=== PATIENT | male | born 1940 | race Caucasian/White ===

== ENCOUNTER 2022-02-26 08:31 | Observation (INO) ==
--- NOTE | 2022-01-26 10:20 | PAT Medication Instructions ---
Medication Instructions Date of Service January 26, 2022 Home Medications aspirin 81 mg tablet,delayed release (Ecotrin Low Strength) 81 mg PO QAM finasteride 5 mg tablet 5 mg PO QAM isosorbide mononitrate 30 mg tablet,extended release 24 hr 30 mg PO QAM lisinopril 10 mg tablet 10 mg PO metoprolol succinate 25 mg tablet,extended release 24 hr 25 mg PO QAM multivitamin 1 tab PO QAM omega 4-ccv-hfx-fish oil 1,200 mg (144 mg-216 mg) capsule (Fish Oil) 1,200 cap PO QAM simvastatin 20 mg tablet 20 mg PO HS trazodone 100 mg tablet 100 mg PO HS vitamin E mixed-tocotrienol 120 unit-17 mg capsule 1 cap PO QAM STOP taking 2 weeks before surgery omega 3-cro-exb-fish oil 1,200 mg (144 mg-216 mg) capsule (Fish Oil) 1,200 cap PO QAM vitamin E mixed-tocotrienol 120 unit-17 mg capsule 1 cap PO QAM DO NOT take the morning of surgery lisinopril 10 mg tablet 10 mg PO multivitamin 1 tab PO QAM Take morning of surgery With a small sip of water, OTHERWISE NOTHING TO EAT OR DRINK AFTER MIDNIGHT: aspirin 81 mg tablet,delayed release (Ecotrin Low Strength) 81 mg PO QAM (unless directed otherwise by surgeon) finasteride 5 mg tablet 5 mg PO QAM isosorbide mononitrate 30 mg tablet,extended release 24 hr 30 mg PO QAM metoprolol succinate 25 mg tablet,extended release 24 hr 25 mg PO QAM Take evening before surgery simvastatin 20 mg tablet 20 mg PO HS trazodone 100 mg tablet 100 mg PO HS Other Notes If you have any questions please call us at [phone] or [phone] or [phone] or [phone]
--- NOTE | 2022-01-27 09:19 | Anesthesiology Consultation ---
Date of Service January 27, 2022 Assessment & Plan (1) Encounter for pre-operative examination: Chart Review Chart Review: Pending: Refer to Additional Notes / Consult section (pending PCP clearance (01/28) with response to CXR, cardio response to abnormal EKG response, and preop Covid testing results ) and Patient seen in Pre Admission Testing - Awaiting surgeon ordered PCP clearance (01/28/22) (will send note with CXR results to address at PAT appt) -Wrote note to cardio inquiring about bifascicular block (noted on 01/27/22 PAT preop EKG and Jun 2021 EKG) and if further work up needed prior to surgery- will await response Per PAT appt on 01/27/22, patient denies any recent travel or large group activities. No known Covid positive exposures or Covid related symptoms. No known Covid infection in the past 90 days. Pt is NOT vaccinated for Covid. Preop Covid testing scheduled 02/24/22 = will await results. Educated on importance of self quarantining, social distancing and wearing mask in public for the patient one week prior to surgery and after Covid testing done Pt seen by cardio 09/22/21= patient seen for follow-up. Lower extremity edema still present but better with Lasix. [place]. Able to do household activities. Shortness of breath only going uphill or when walking quickly. CADstablecontinue current meds. Shortness of breath with exertionlikely multifactorialpossibility of COPD. Hypertensionwell controlled. Hyperlipidemiacontinue statin. Mild aortic stenosisnoted on 2019 echohas been stable. Diastolic dysfunctionlower extremity edema chroniccontinue Lasix. Follow-up in 6 months. Teaching & Discussion Pre-Anesthesia Teaching/Discussion Notes: Instructed NPO after midnight before surgery,except medications with 15 cc of water. Medication instructions provided according to the PAT guidelines. History Surgery Operation Date: 02/26/22 13:50 Proposed Procedures p Left Total Shoulder Arthroplasty Reverse - Carmelo Cisse MD Height/Weight Height: 5 ft 9 in Weight: 105.1 kg Allergies Allergy/AdvReac Type Severity Reaction Status Date / Time Penicillins Allergy Severe RASH; SOB Verified 01/27/22 09:25 latex Allergy Intermediate localized Verified 01/23/22 13:12 rash Medications Home Medications Medication Instructions Recorded Confirmed Last Taken aspirin 81 mg tablet,delayed 81 mg PO COUNT INCLUDES THE [facility] 01/23/22 01/23/22 Unknown release (Ecotrin Low Strength) finasteride 5 mg tablet 5 mg PO COUNT INCLUDES THE [facility] 01/23/22 01/23/22 Unknown isosorbide mononitrate 30 mg 30 mg PO QA 01/23/22 01/23/22 Unknown tablet,extended release 24 hr lisinopril 10 mg tablet 10 mg PO 1200 01/23/22 01/23/22 Unknown metoprolol succinate 25 mg 25 mg PO QA 01/23/22 01/23/22 Unknown tablet,extended release 24 hr multivitamin 1 tab PO COUNT INCLUDES THE [facility] 01/23/22 01/23/22 Unknown omega 5-aoi-nzs-fish oil 1,200 mg 1,200 cap PO COUNT INCLUDES THE [facility] 01/23/22 01/23/22 Unknown (144 mg-216 mg) capsule (Fish Oil) simvastatin 20 mg tablet 20 mg PO 01/23/22 01/23/22 Unknown trazodone 100 mg tablet 100 mg PO 01/23/22 01/23/22 Unknown vitamin E mixed-tocotrienol 120 1 cap PO COUNT INCLUDES THE [facility] 01/23/22 01/23/22 Unknown unit-17 mg capsule Past Medical History Medical History BPH (benign prostatic hyperplasia) CAD (coronary artery disease) Cardiac cath 07/22/2017 WARNER to LAD patent, SVG to OM1 is patent, SVG to PDA and SVG to diagonal are occluded. WARNER to LAD gives collaterals that supply the acute marginal branch of RCA. S/p one stent in 2017 to prox/mid Cx (Cobra stent) S/p 5 vessel CABG 1998 CKD (chronic kidney disease), stage III Hyperlipidemia Hypertension Mild aortic stenosis Per ECHO 2019 Osteoarthritis SOB (shortness of breath) on exertion R/t environmental fumes and second hand smoke. Active daily. No inhalers Exercise / Class Metabolic Activity III < 4 Walking/Shop/Light housework (one flight of stairs - mild SOB, no chest pain - does routine yardwork ) Past Family History Family History Other No family history of adverse response to anesthesia Past Surgical History Surgical History History of cardiac cath 2017 [facility] History of coronary artery bypass graft December 1998 -- 5 vessel bypass ([place]) History of heart artery stent x1 in 2017 ([facility]) History of total hip arthroplasty left S/P TURP Past Anesthesia History No Hx of Anesthesia Complications and No Family Hx of Anesthesia Complications History of PONV No Hx of PONV and No Hx of Motion Sickness Social History Smoking Status: Never smoker Do You Dip or Chew Tobacco: No Hx Alcohol Use: No Hx Substance Use: No Review of Systems Chronic ANDERS- mild and stable Patient denies chest pain, shortness of breath at rest, reflux, cough, wheezing, palpitations. No hx of seizures, stroke, apnea/snoring. No hx of blood clots or blood transfusions Physical Exam Vital Signs VITALS BP 126/65 P 53 TEMP 97.9 SP02 98% RESP 16 Constitutional no acute distress ENMT Mouth: no TMJ clicking Thyromental Distance: > or= 3.5 Finger Breadths (3.5) Mallampati Class: I Full dentures on top and bottom Neck neck extension not limited Respiratory normal respiratory effort; no respiratory distress Auscultation: lungs clear to auscultation bilaterally; no wheezes Cardiovascular Rate/Rhythm: regular rate and regular rhythm Heart Sounds: + murmur (II/ murmur ) Vessels: no carotid bruit Heart sounds diminished throughout Musculoskeletal Spine: no pain with cervical ROM Extremities: extremities normal to inspection Psychiatric Orientation: alert Lab Results Anesthesia Preop Results Results Anesthesia Widget: WBC 5.97 K/uL (4.8-10.8) 01/27/22 Hgb 13.1 g/dL (14.0-18.0) L 01/27/22 Hct 40.9 % (42-52) L 01/27/22 Plt 227 K/uL (130-400) 01/27/22 Na 141 mmol/L (136-145) 01/27/22 K 5.0 mmol/L (3.5-5.1) 01/27/22 Cl 108 mmol/L (98-107) H 01/27/22 CO2 28 mmol/L (21-32) 01/27/22 BUN 29 mg/dl (6-23) H 01/27/22 Creat 1.27 mg/dl (0.6-1.4) 01/27/22 Glucose Level 120 mg/dl (70-99(Fasting)) H 01/27/22 PT 10.2 Seconds (9.0-12.0) 01/27/22 PTT 29.7 Seconds (21.0-31.0) 01/27/22 INR 1.0 (0.9-1.1) 01/27/22 HA1c 6.4 % (4.5-5.6) H 01/27/22 Urine Color Yellow 01/27/22 Urine Appearance Clear (Clear) 01/27/22 Urine pH 5.5 (4.5-7.5) 01/27/22 Urine Specific [place] 1.026 (1.000-1.030) 01/27/22 Urine Protein Trace (Negative) H 01/27/22 Urine Glucose (UA) Negative (Negative) 01/27/22 Urine Ketones Negative (Negative) 01/27/22 Urine Blood Negative (Negative) 01/27/22 Urine Nitrite Negative (Negative) 01/27/22 Urine Bilirubin Negative (Negative) 01/27/22 Urine Urobilinogen Negative (Negative) 01/27/22 Urine Leukocyte Esterase Negative (Negative) 01/27/22 Urine WBC (Auto) 1-5 /hpf (0-5) 01/27/22 Urine RBC (Auto) 0-4 /hpf (0-4) 01/27/22 Urine Hyaline Casts (Auto) 1-5 /lpf (0-5) 01/27/22 Urine Epithelial Cells (Auto) 10-20 /lpf (0-5) H 01/27/22 Urine Bacteria (Auto) Negative (Negative) 01/27/22 Blood Type O Positive 01/27/22 Antibody Screen NEGATIVE 01/27/22 Testing Electrocardiogram Date: 01/27/22 Sinus bradycardia with first-degree AV block with occasional PVCs at 50 bpm Right bundle branch block Left anterior fascicular block Bifascicular block Moderate voltage criteria for LVH, may be normal variant When compared with EKG from January 14, 2016PVC complexes are now present, MI interval has increased. Right bundle branch block has replaced nonspecific intraventricular conduction block per cardio Chest X-Ray Date: 01/27/22 FINDINGS: PA and lateral chest radiographs are compared to study dated 01/14/2016. The patient is status post midline sternotomy. The heart is enlarged noting atherosclerotic calcification of the thoracic aorta. There is prominence of the pulmonary vasculature. Again seen is a small and at least partially loculated left pleural effusion with associated left basilar opacities. The right lung appears clear noting basilar scarring/atelectasis. There is no pneumothorax. The skeletal structures are osteopenic. A compression deformity is noted at the thoracolumbar junction. IMPRESSION: 1. Cardiomegaly with prominence of the pulmonary vasculature. Correlate clinically for evidence of fluid overload/congestive change. 2. There is a small at least partially loculated pleural effusion/collection at the left lung base. This is likely chronic, as this was also seen in 2016. 3. Left basilar opacities are also unchanged and likely represent scarring/atelectasis. Clinical correlation will be required. Echocardiogram Date: 10/05/19 EF: 55-59% LV Function: normal RWMA: + none Other Findings: + LVH (moderate/concentric ) and + diastolic dysfunction (Grade I ) Mild aortic valve stenosis Mild MR. Mild TR. Mild MI. Estimated PASP 27mmHg. Stress Test Date: 04/14/17 Type: nuclear Lexiscan nuclear cardiac stress test positive for for reversible ischemia Small area of moderately reduced reversible perfusion deficit noted in the apical to mid anterior wall. TID normal at 1.05. Gated SPECT images mild hypokinesis of apex. LVEF is calculated 63%. Cardiac Catheterization Date: 07/22/17 3 of 4 bypass grafts are patent. WARNER to LAD patent SVG to OM1 patent SVG to PDA and SVG to diagonal are occluded. WARNER to LAD gives collaterals that supply the acute marginal branch of RCA. Incomplete revascularization achieved but rest of the vessels are revascularizable. PCI of the proximal circumflex to mid circumflex were successfuldevice used was a Cobra stent. LVEDP not elevated. AV gradient is around 20 mmHg. Mild aortic stenosis Severe [place] CAD. There is 90% pLCx stenosis. 100%pLAD stenosis. pRCA 100% lesion. Pulmonary Function Test Date: 09/23/21 SPIROGRAM: Shows pre bronchodilator FEV1 to be decreased at 65% of predicted (1.62 L), FVC is decreased at 66% of predicted (2.21 L). FEV1/FVC ratio is less than predicted. There is no bronchodilator studies SMALL AIRWAYS:The flow of air at 25 - 75% of vital capacity is decreased LUNG VOLUMES: Lung volumes when measured by body plethysmography shows DIFFUSION CAPACITY: Diffusion capacity is decreased at 53% of predicted. However, the diffusing capacity was not corrected for the patient's hemoglobin. RESISTANCE: The airway resistance is increased. CONCLUSION: PFT is suggestive of combined obstructive and restrictive ventilatory impairment. Uncorrected diffusion capacity is decreased.
--- NOTE | 2022-02-21 08:54 | History & Physical Report ---
Date of Service February 21, 2022 Assessment & Plan (1) Rotator cuff arthropathy of left shoulder: Plan: Treatment options discussed with the patient. He has failed conservative measures. He would like to proceed with surgical intervention. Risks, benefits and alternatives to surgery including but not limited to infection, DVT, pain, stiffness, need for revision surgery, damage to blood vessels, damage to nerves, PE, , were discussed with the patient and they wish to proceed. Plan for left reverse total shoulder arthroplasty at [facility] on February [address] Cisse. All questions answered. Patient will follow-up postop. History of Present Illness Chief Complaint: Left shoulder pain Primary Care Provider: Cortney Lobato 81-year-old male with past medical history significant for hypertension, high cholesterol, CAD status post bypass and stents, COPD and interstitial lung disease who presents with ongoing left shoulder pain. Patient has failed conservative measures. Pain is interfering with his daily activities. He would like to proceed with surgical intervention. Patient denies headaches, sweats, fevers, chills, double vision, blurred vision, cough, sore throat, dysphagia, chest pain, sob, wheezing, n/v/d/c, numbness, tingling, fatigue, urinary symptoms, mood disorders. ROS positive for left shoulder pain and stiffness. Allergies Allergy/AdvReac Type Severity Reaction Status Date / Time Penicillins Allergy Severe RASH; SOB Verified 01/27/22 09:25 latex Allergy Intermediate localized Verified 01/23/22 13:12 rash Home Medications Medication Instructions Recorded Confirmed Type aspirin 81 mg tablet,delayed 81 mg PO QAM 01/23/22 01/23/22 History release (Ecotrin Low Strength) finasteride 5 mg tablet 5 mg PO QAM 01/23/22 01/23/22 History isosorbide mononitrate 30 mg 30 mg PO QAM 01/23/22 01/23/22 History tablet,extended release 24 hr lisinopril 10 mg tablet 10 mg PO 1200 01/23/22 01/23/22 History metoprolol succinate 25 mg 25 mg PO QAM 01/23/22 01/23/22 History tablet,extended release 24 hr multivitamin 1 tab PO QAM 01/23/22 01/23/22 History omega 6-zng-mql-fish oil 1,200 mg 1,200 cap PO QAM 01/23/22 01/23/22 History (144 mg-216 mg) capsule (Fish Oil) simvastatin 20 mg tablet 20 mg PO HS 01/23/22 01/23/22 History trazodone 100 mg tablet 100 mg PO HS 01/23/22 01/23/22 History vitamin E mixed-tocotrienol 120 1 cap PO QAM 01/23/22 01/23/22 History unit-17 mg capsule Past Med/Surg History Medical History (Updated 02/21/22 @ 08:53 by Fritz Matthews PA-C) BPH (benign prostatic hyperplasia) CAD (coronary artery disease) Cardiac cath 07/22/2017 WARNER to LAD patent, SVG to OM1 is patent, SVG to PDA and SVG to diagonal are occluded. WARNER to LAD gives collaterals that supply the acute marginal branch of RCA. S/p one stent in 2017 to prox/mid Cx (Cobra stent) S/p 5 vessel CABG 1998 CKD (chronic kidney disease), stage III Hyperlipidemia Hypertension Mild aortic stenosis Per ECHO 2019 Osteoarthritis Prediabetes Per PCP records SOB (shortness of breath) on exertion R/t environmental fumes and second hand smoke. Active daily. 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 Beliefs That Will Affect Care: None Current Living Situation: Alone Feels Safe at Home: Yes Assistive Devices: Denture - Upper, Denture - Lower and Glasses Review of Systems All systems reviewed & are unremarkable except as noted in HPI & below Physical Exam Constitutional: well developed and well nourished; no acute distress Eyes: PERRL, conjunctivae normal, anicteric sclerae ENMT: external ear and nose normal, oropharynx normal Neck: trachea midline, no thyromegaly Respiratory: normal respiratory effort, lungs clear to auscultation Cardiovascular: RRR, no murmur, no edema Musculoskeletal: Left shoulder: Tenderness anterolateral acromion. Positive impingement signs. Active painful range of motion. Range of motion: Active abduction to 60 degrees, forward flexion is 70 degrees, external rotation to 70 degrees. Shoulder external rotation strength is 3+/5, internal rotation is 4+/5, abduction is 2+/5. Skin: no rashes, warm and dry Neurologic: patellar DTR's 2+ bilat, sensation intact Psychiatric: A+Ox3, euthymic affect Results & Data ([facility]) Diagnostic Findings Left shoulder radiographs demonstrate mild proximal migration humeral head. Degenerative changes greater tuberosity consistent with chronic rotator cuff pathology. MRI demonstrates massive full-thickness rotator cuff tear with retraction to the level of the glenoid. There is fatty atrophy. Is upper border subscapularis tear.
[~2022-02-26 08:31] MED LIST: ACETAMINOPHEN 500 MG TAB PO SCH; BUPIVACAINE 0.5 % 5 MG/1 ML PF 10ML VIAL ONE; CeleBREX 200 MG CAP PO SCH; FAMOTIDINE 20 MG TAB PO SCH; GABAPENTIN 300 MG CAP PO SCH; LR 15ML/HR IV SCH; METOCLOPRAMIDE HCL 10 MG TABLET PO SCH; TRANEXAMIC ACID 1,000 MG **IV Intra-op IV SCH; TRANEXAMIC ACID 1,000 MG **IV Pre-op IV SCH; VANCOMYCIN HCL 1,500 MG in SODIUM CHLORIDE 0.9% 500 ML IV SCH; dexAMETHasone 4 MG TAB PO SCH
--- NOTE | 2022-02-26 09:19 | History & Physical Bridge Note ---
Date of Service February 26, 2022 History & Physical Bridge Note I have examined the patient, reviewed the History & Physical and in the interval since the performance of the History & Physical I have noted the following changes of clinical significance: no changes noted
[2022-02-26] MEDS ORDERED: BUPIVACAINE 0.5 % 5 MG/1 ML MPF 30ML VIAL ONE (10:00)
[2022-02-26] MEDS ORDERED: fentaNYL citrate 100 MCG/2 ML VIAL IV PRN (10:29)
[2022-02-26] MEDS ORDERED: ATROPINE SULFATE 0.1 MG/ML 10ML SYR IV PRN (10:29)
[2022-02-26] MEDS ORDERED: ePHEDrine sulfate 50 MG/ML AMP IV PRN (10:29)
[2022-02-26] MEDS ORDERED: ONDANSETRON INJ 2 MG/ML 2 ML VIAL IV PRN ×2 (10:29→15:57)
[2022-02-26] MEDS ORDERED: MIDAZOLAM HCL 1 MG/ML 2ML VIAL ONE (10:56)
[2022-02-26] MEDS ORDERED: fentaNYL citrate 100 MCG/2 ML VIAL ONE (10:56)
[2022-02-26] MEDS ORDERED: ONDANSETRON INJ 2 MG/ML 2 ML VIAL ONE ×2 (12:15→13:05)
[2022-02-26] MEDS ORDERED: DEXAMETHASONE SOD INJ 4 MG/ML VIAL ONE ×2 (12:15→13:05)
[2022-02-26] MEDS ORDERED: ePHEDrine sulfate 50 MG/ML AMP ONE (13:04)
[2022-02-26] MEDS ORDERED: NEOSTIGMINE METHYLSULFATE 1 MG/ML 10ML VIAL ONE (13:05)
[2022-02-26] MEDS ORDERED: GLYCOPYRROLATE 0.2 MG/ML VIAL ONE (13:05)
--- NOTE | 2022-02-26 14:25 | Post Operative Brief Note ---
Immediate Post Op Note v1 Date of Surgery February 26, 2022 Pre & Post Diagnosis Operation Date: 02/26/22 11:20 Pre-Op Diagnosis: Left Shoulder Rotator Cuff Arthropathy, chronic rotator cuff tear, proximal biceps rupture Post-Op Diagnosis: Left Shoulder Rotator Cuff Arthropathy, chronic rotator cuff tear, proximal biceps rupture I identified the patient and participated in the time-out.: Yes Procedure Operation Date: 02/26/22 11:20 Actual Procedures p Left Reverse Total Shoulder Arthroplasty(Left) - Carmelo Cisse MD Surgeon Carmelo Cisse MD Process Equipment Operator Inderjit CHISHOLM Estimated Blood Loss 30 Findings Consistent with Post-Op Diagnosis Specimens Humeral head Drains Hemovac Drain Anesthesia Type General Regional Complications none Disposition Disposition: Recovery Room Overlapping Procedure I was immediately available: during the entire case.
--- NOTE | 2022-02-26 14:36 | Operative Report ---
Post Operative Report Pre & Post Diagnosis Operation Date: 02/26/22 11:20 Pre-Op Diagnosis: Left Shoulder Rotator Cuff Arthropathy, chronic rotator cuff tear, proximal biceps rupture Post-Op Diagnosis: Left Shoulder Rotator Cuff Arthropathy, chronic rotator cuff tear, proximal biceps rupture I identified the patient and participated in the time-out.: Yes Procedure Operation Date: 02/26/22 11:20 Actual Procedures p Left Reverse Total Shoulder Arthroplasty(Left) - Carmelo Cisse MD Surgeon Carmelo Cisse MD Paper Cleaner Inderjit CHISHOLM Estimated Blood Loss 30 Findings Consistent with Post-Op Diagnosis Specimens Humeral head Drains 2 Hemovac Anesthesia Type General Regional Complications none Disposition Disposition: Recovery Room Indications 81-year-old male with chronic left shoulder pain weakness pseudoparalysis unable to raise arm overhead. X-rays and MRI demonstrate large retracted rotator cuff tear proximal migration rotator cuff arthropathy and proximal biceps rupture. Description of Procedure The patient was taken to the operating room and anesthetized under regional block and general anesthetic. The patient was positioned on the operating table in a 30 beach chair position with a towel roll under the medial border of the left scapula. The arm was draped free to be able to manipulate the shoulder as needed. The left upper extremity was prepped and draped in usual sterile fashion. Exam demonstrated 150 degrees forward flexion 100 degrees abduction 60 degrees external rotation 80 degrees internal rotation. An anterior deltopectoral approach was performed. A longitudinal incision was made in the deltopectoral interval. The skin was incised sharply. Subcutaneous flaps were elevated off the fascia. The cephalic vein was dissected out and retracted lateral with the deltoid. The clavipectoral fascia was divided at the lateral margin of the conjoined tendon and extended up to the CA ligament. The following findings were noted: There was chronic bursitis over the rotator cuff and a large rotator cuff tear involving supraspinatus infraspinatus with intact teres minor. There is tendinopathy of the subscapularis tendon. There was chronic ruptured biceps tendon with a retained biceps tendon sheath in the groove. This did have some fluid in it. The upper centimeter of the pectoralis was released for inferior exposure. A self-retaining retractor was placed. The biceps tendon sheath was resected. The subscapular muscle fibers were split longitudinally at the level of the circumflex vessels. The circumflex vessels were identified and tied off with silk ties and divided laterally. A Kitner elevator was used to free up the inferior fibers of the subscapularis off of the capsule. The axillary nerve was identified with a tug test and protected with a blunt Luigi retractor between the nerve and the capsule. The subscapularis tendon was then taken down off of the lesser tuberosity subperiosteally, a Vicryl traction suture was placed and a subperiosteal dissection was performed along the neck of the humerus as the arm was gradually externally rotated exposing the humeral head. The humeral head findings demonstrated no significant osteophytes with some grade 2-3 arthritic wear of the superior head underlying the rotator cuff tear. Retractors were readjusted and A Craft elevator was used to assist in releasing the capsule of the neck of the humerus. The capsule was divided with Hwang scissors down to the glenoid released off the anterior glenoid and the rotator interval was released to meet the capsular release and a 360 release of the subscapularis was accomplished. A Fukuda retractor was placed into the joint retracting the humeral head posterior. Glenoid findings demonstrated grade 2 osteoarthritis no exposed bone. The labrum was resected. an anterior-inferior and posterior inferior capsular release were performed with electrocautery and a Craft elevator on bone with the axillary nerve protected inferiorly by the retractor. Attention was then taken to the humeral preparation. The cutting guide was placed into the humeral head. It was positioned at 20 of retroversion. Oscillating saw was used to resect the humeral head giving the cut above the level of the posterior rotator cuff insertion site. The humerus was then prepared for the stem. I used the ascend flex stem from [employer]. The sizing broaches were used followed by trial broaches up to a size 6B long which had the appropriate fit and fill. The appropriate sized cut protector was placed. The humerus was then retracted posterior to the glenoid. The glenoid was sized for a 29 baseplate The guide for the baseplate was positioned in a 10 inferior tilt and the central drill hole was made. The reamer for the 29 baseplate was used. The central drill was widened for the peg. The Tornier aequalis hydroxyapatite-coated 29 mm baseplate was impacted into position. The base plate was transfixed with superior and inferior locking screws and anterior and posterior compression screws with stable fixation. The fan reamer was used for the 42 millimeter glenoid sphere. After irrigation the 42 mm standard glenoid sphere was impacted onto the baseplate and the security screw was tightened. Attention was taken back to the humerus. The cut protector was removed and the +0 high offset humeral tray trial was assembled to the trial stem rotated appropriately to get bony coverage and then screwed in position. A trial reduction was performed. A +6, 42 trial insert demonstrated good stability and no shuck. The trials were removed. 3 drill holes are made into the harder bone in the bicipital groove area and 3 #5 FiberWire sutures were placed transosseously. The canal was irrigated with antibiotic solution with bacitracin. The final component was assembled. The final component was plus or high offset tray assembled to the size 6B long ascend flex stem with a +6, 42 polyethylene reversed insert. This was then impacted into the humerus with a tight press-fit. It was reduced to the glenoid sphere. Stability was verified. Subscapularis was repaired with the #5 FiberWire sutures using Felix-Cole suture technique. The pectoralis was repaired with #2 FiberWire [id number] sutures . The arm was taken through a range of motion which demonstrated 150 degrees forward flexion 90 degrees abduction 45 degrees external rotation without any tension on repair. The implant was stable through the range of motion tested. The wound was copiously irrigated. 2 Hemovac drains were placed. The deltopectoral interval was closed with [id number] #1 Vicryl sutures. The subcutaneous tissues were closed with 2-0 Vicryl sutures. The skin was closed with macie. Sterile dressings were applied and a shoulder immobilizer. Inderjit CHISHOLM, my physician physician office assistant acted as middle school assistant principal throughout the procedure .He performed functions including patient positioning, arm positioning, prepping and draping, soft tissue retraction, instrument management, suture management and performed the subcutaneous and skin closure and will participate in the postoperative care of the patient. I attest to the content of the Intraoperative Record and any orders documented therein. Any exceptions are noted below.
--- NOTE | 2022-02-26 15:04 | XRay Report ---
XR shoulder LT min 2V routine CLINICAL HISTORY: Post shoulder surgery TECHNIQUE: 3 views of the left shoulder were obtained. Comparison: None available at the time of this dictation. FINDINGS: Patient is status post shoulder arthroplasty with expected postsurgical changes including soft tissue swelling, subcutaneous emphysema, and surgical staple placement. No periarticular lucency or hardwar e fracture is seen. Median sternotomy wires are seen. A left pleural effusion cannot be excluded. IMPRESSION: Expected postoperative appearance status post placement of shoulder arthroplasty. ACT 112: Negative or not required by law. Electronically signed by: Joaquin Peña M.D. 02/26/2022 3:02 PM
--- NOTE | 2022-02-26 15:06 | Anesthesiology Progress Note ---
Date of Service February 26, 2022 Anesthesia Post Procedure Vital Signs Vital Signs: Temp Pulse Pulse Resp BP BP Pulse Ox 02/26/22 14:55 69 15 153/75 H 96 02/26/22 14:45 72 19 123/77 93 02/26/22 14:35 74 11 L 145/77 H 96 02/26/22 14:25 36.8 C 77 7 L 173/87 H 94 02/26/22 09:28 36.9 C 66 20 144/98 H 96 Pain Intensity Left Shoulder: Pain Intensity: 8 Transfer of Care Handoff Completed per policy Notes Mental Status: alert / awake / arousable Patient Amnestic to Procedure: Yes Nausea / Vomiting: adequately controlled Pain: adequately controlled Airway Patency, RR, SpO2: stable & adequate BP & HR: stable & adequate Hydration State: stable & adequate Anesthetic Complications: no major complications apparent
[2022-02-26] MEDS ORDERED: METOCLOPRAMIDE HCL INJ 5 MG/ML 2 ML VIAL IV PRN (15:57)
[2022-02-26] MEDS ORDERED: oxyCODONE HCL IR 5 MG TAB (IMMEDIATE RELEASE) PO PRN (15:57)
[2022-02-26] MEDS ORDERED: TAMSULOSIN HCL 0.4 MG CAP PO PRN (15:57)
[2022-02-26] MEDS ORDERED: NALOXONE HCL 0.4 MG/1 ML VIAL/CARP IV PRN (15:57)
[2022-02-26] MEDS ORDERED: VANCOMYCIN CONSULT ACTIVE PRN (15:57)
[2022-02-26] MEDS ORDERED: SODIUM CHLORIDE 0.9% 1000ML 1,000 ML IV SCH (15:57)
[2022-02-26] MEDS ORDERED: bisacodyL 10 MG SUPP PR PRN (15:57)
[2022-02-26] MEDS ORDERED: MAGNESIUM HYDROXIDE SUSP 30 ML UDC PO PRN (15:57)
[2022-02-26] MEDS ORDERED: HYDROmorphone INJ 0.5 MG/0.5 ML SYR IV PRN (15:57)
--- NOTE | 2022-02-26 16:07 | Hospitalist Consultation ---
Date of Consultation February 26, 2022 Assessment & Plan (1) S/p reverse total shoulder arthroplasty: This is an 78-year-old male with PMH of CAD (s/p CABG in , RENETTA x 1 2016), CKD 3, hypertension, hyperlipidemia, BPH, mild aortic stenosis, prediabetes and other medical problems listed below who is s/p left reverse TSA by Dr. Cisse. POD#0 s/p left reverse TSA by Dr. Cisse. Per ortho for pain control, wound care, anticoagulation and activities Monitor H&H (pre-op hgb 13.1), continue incentive spirometry, PT/OT when appropriate (2) CAD (coronary artery disease): H/o CABG in 1998, RENETTA x 1 in 2016. No recent chest pain Continue aspirin, Imdur, Toprol Diastolic dysfunction Takes 20mg Lasix PRN for edema and noted to have 1+ BLE edema on exam. Will discontinue post-op fluids now and plan to resume lasix tomorrow after checking renal function (3) Hypertension: Normotensive. Continue Toprol, lisinopril (4) BPH (benign prostatic hyperplasia): Continue finasteride, bladder scan PRN (5) CKD (chronic kidney disease), stage III: Baseline Cr ~1.5, was 1.9 pre-operatively. Check daily BMP (6) Prediabetes: Most recent a1c 6.2. Monitor glucose daily, carb consistent diet (7) Hyperlipidemia: Continue statin (8) Sleep disturbance: Continue Trazodone HS (9) Mild aortic stenosis: Noted on 2019 echo. Stable per outpatient records PCP: Andre Dispo: Per primary service Patient seen in collaboration with Dr. Arzola. Please see addendum. 78-year-old gentleman with PMH of CAD status post CABG and RENETTA, HTN, HLD, BPH, mild aortic stenosis and prediabetes who is a status post left reverse total shoulder arthroplasty 02/26/2022 is a medical management consult. Patient hemodynamically stable and pain under control at bedside exam. Patient underwent elective surgery for failure of conservative management of his left shoulder pain affecting his daily activities. Pain management/PT OT/DVT prophylaxis per primary team. Preop hemoglobin 13.1, follow-up with as being in a.m., watch out for ABL anemia. Incentive spirometer. Patient's home medications reviewed, will discontinue IV fluid and after clinical assessment and BMP in a.m., likely a dose of Lasix. Patient takes Lasix 20 mg up to 3 times a week. Upon examination: GENERAL: Alert and oriented x3. NAD, on RA. HEENT: No pallor, no icterus. Pupils equal, round and reactive to light. Oral mucosa moist. NECK: No JVD, no neck masses. HEART: S1 and S2 heard. Regular rate and rhythm. systolic mumur at aortic area, no gallop. RESPIRATORY SYSTEM: Normal AP diameter. No accessory muscle use. No wheezing, no crackles. ABDOMEN: Soft, bowel sounds present, nontender, no distention. CENTRAL NERVOUS SYSTEM: No facial droop. Speech is clear. Obeys simple commands. Moves extremities. EXTREMITIES: 1+ BLE edema, no erythema seen. Lt Shoulder w/ clean dressing adn hemovac drainage. I have seen and examined the patient and have discussed the case with the provider above. I agree with the assessment and plan as stated. History of Present Illness Reason for Consultation: Postop medical management Attending Physician: Carmelo Cisse MD History of Present Illness This is an 78-year-old male with PMH of CAD (s/p CABG in , RENETTA x 1 2016), CKD 3, hypertension, hyperlipidemia, BPH, mild aortic stenosis, prediabetes and ot her medical problems listed below who is POD#0 s/p left reverse TSA by Dr. Cisse. Patient is feeling well postoperatively. Slipped on the ice this past September and has had shoulder pain since then. Has significant cardiac history with most recent intervention in 2017 with stent placement. Denies any issues since then. Has been prescribed Lasix 20 mg for lower extremity weight gain but states he only uses a few times per week. Denies any fever, chills, headache, lightheadedness, chest pain, shortness of breath, nausea, vomiting, abdominal pain, dysuria, diarrhea or constipation. Allergies Allergy/AdvReac Type Severity Reaction Status Date / Time Penicillins Allergy Severe RASH; SOB Verified 02/26/22 09:20 latex Allergy Intermediate localized Verified 02/26/22 09:20 rash Home Medications Medication Instructions Recorded Confirmed Type aspirin 81 mg tablet,delayed 81 mg PO QAM 01/23/22 02/26/22 History release (Ecotrin Low Strength) finasteride 5 mg tablet 5 mg PO QAM 01/23/22 02/26/22 History isosorbide mononitrate 30 mg 30 mg PO QAM 01/23/22 02/26/22 History tablet,extended release 24 hr lisinopril 10 mg tablet 10 mg PO 1200 01/23/22 02/26/22 History metoprolol succinate 25 mg 25 mg PO QAM 01/23/22 02/26/22 History tablet,extended release 24 hr multivitamin 1 tab PO QAM 01/23/22 02/26/22 History omega 0-yhr-lka-fish oil 1,200 mg 1,200 cap PO QAM 01/23/22 02/26/22 History (144 mg-216 mg) capsule (Fish Oil) simvastatin 20 mg tablet 20 mg PO HS 01/23/22 02/26/22 History trazodone 100 mg tablet 100 mg PO HS 01/23/22 02/26/22 History vitamin E mixed-tocotrienol 120 1 cap PO QAM 01/23/22 02/26/22 History unit-17 mg capsule furosemide 20 mg tablet 20 mg PO DAILY PRN 02/26/22 02/26/22 History Patient History Medical History (Updated 02/26/22 @ 16:40 by Lizette Montelongo PA-C) BPH (benign prostatic hyperplasia) CAD (coronary artery disease) Cardiac cath 07/22/2017 WARNER to LAD patent, SVG to OM1 is patent, SVG to PDA and SVG to diagonal are occluded. WARNER to LAD gives collaterals that supply the acute marginal branch of RCA. S/p one stent in 2017 to prox/mid Cx (Cobra stent) S/p 5 vessel CABG 1998 CKD (chronic kidney disease), stage III Hyperlipidemia Hypertension Mild aortic stenosis Per ECHO 2019 Osteoarthritis Prediabetes Per PCP records Sleep disturbance SOB (shortness of breath) on exertion R/t environmental fumes and second hand smoke. Active daily. No inhalers Surgical History History of cardiac cath 2016 [facility] History of coronary artery bypass graft December 1998 -- 5 vessel bypass ([facility]) History of heart artery stent x1 in 2017 ([facility]) History of total hip arthroplasty left S/P TURP Family History Other Heart disease No family history of adverse response to anesthesia Social History Smoking Status: Never smoker Second Hand Exposure: Yes (extensive exposure history); Do You Dip or Chew Tobacco: No; Tobacco Cessation Education Requested by Patient: No Hx Alcohol Use: No Hx Substance Use: No Preferred Language: Vincentian Communication Ability: Effective Business Solutions Architect Required: No Beliefs That Will Affect Care: None Current Living Situation: Alone Other Information That Helps Us Care for You: No Feels Safe at Home: Yes Safety Concerns: Feels Safe At This Time Assistive Devices: Denture - Upper, Denture - Lower and Glasses Review of Systems Review of Systems: At least ten systems reviewed and negative except as noted in the HPI. Physical Exam Physical Exam: Gen: WD/WN, NAD, A&Ox3 HEENT: Normocephalic, atraumatic, conjunctivae moist, sclerae anicteric, mucous membranes moist Lung: Clear to Auscultation bilaterally, no wheezes/rales/rhonchi Heart: Regular rate, regular rhythm, no murmurs, rubs, or gallops Abdomen: Soft, NT, ND +BS x 4 Extremities: L shoulder in sling, drain visualized, NVI. 1+ BLE edema Skin: Warm, no rash Results & Data Results & [facility] ([facility]) Vital Signs (Past 12 Hours) Vital Signs Temp Pulse Pulse Resp BP BP Pulse Ox 02/26/22 15:30 36.5 C 69 17 155/72 H 93 02/26/22 15:15 71 16 143/79 H 92 02/26/22 15:05 36.2 C L 70 19 153/75 H 96 02/26/22 14:55 69 15 153/75 H 96 02/26/22 14:45 72 19 123/77 93 02/26/22 14:35 74 11 L 145/77 H 96 02/26/22 14:25 36.8 C 77 7 L 173/87 H 94 02/26/22 09:28 36.9 C 66 20 144/98 H 96
[2022-02-26] MEDS ORDERED: traZODone HCL 100 MG TAB PO SCH (21:00)
[2022-02-26] MEDS ORDERED: SIMVASTATIN 20 MG TAB PO SCH (21:00)
[2022-02-26] MEDS ORDERED: VANCOMYCIN HCL 1,500 MG in SODIUM CHLORIDE 0.9% 500 ML IV ONE (21:00)
[2022-02-26] MEDS ORDERED: SENNA 8.6 MG TAB PO SCH (21:00)
[2022-02-26] MEDS: DOCUSATE SODIUM 100 MG CAP PO SCH (21:36)
[2022-02-26] MEDS: ACETAMINOPHEN 500 MG TAB PO SCH (21:37)
[2022-02-27] MEDS ORDERED: VANCOMYCIN HCL 1,500 MG in SODIUM CHLORIDE 0.9% 250 ML IV SCH (00:30)
[2022-02-27] MEDS: ACETAMINOPHEN 500 MG TAB PO SCH ×2 (05:35→14:59)
[2022-02-27 05:56] LABS: Hematocrit (blood only) 38.6 % (42-52); Hemoglobin 13.1 g/dL (14.0-18.0); Immature Granulocytes # (auto) 0.05 K/uL (0.00-0.02); Immature Granulocytes % (auto) 0.3 %; Lymphocytes # (auto) 0.81 K/uL (1.2-3.4); Mean Corpuscular Hemoglobin 31.5 pg (25-34); Mean Corpuscular Hgb Conc 33.9 g/dL (32-36); Mean Corpuscular Volume 92.8 fL (80-100); Mean Platelet Volume 9.3 fL (7.4-10.4); Monocytes # (auto) 0.77 K/uL (0.11-0.59); Monocytes % (auto) 4.8 %; Neutrophils # (auto) 14.55 K/uL (1.4-6.5); Neutrophils % (auto) 89.9 %; Platelet Count 219 K/uL (130-400); RDW Coefficient of Variation 13.4 % (11.5-14.5); RDW Standard Deviation 45.5 fL (36.4-46.3); Red Blood Count 4.16 M/uL (4.7-6.1); White Blood Count 16.18 K/uL (4.8-10.8)
[2022-02-27 06:30] LABS: BUN Creatinine Ratio 18.9 (10-20); Calcium 8.8 mg/dl (8.5-10.1); Creatinine Clr Calc Pharmacy 39.5 ml/min; Est GFR (African American) 42.6 ml/min; Est GFR (Non-African American) 36.7 ml/min; Potassium 4.5 mmol/L (3.5-5.1)
--- NOTE | 2022-02-27 07:56 | Orthopedic Progress Note ---
Date of Service February 27, 2022 Assessment & Plan (1) S/p reverse total shoulder arthroplasty: Plan: Postop day 1 left reverse total shoulder arthroplasty -PT/OT: No formal therapy at this time -Pain management as written home -AM labs: Mild leukocytosis likely due to surgical stress versus perioperative steroids. Hemoglobin 13.1 stable. Does have some mild hyponatremia with sodium of 134. Creatinine did increase to 1.69 from 1.2 preop. He does have history of CKD -DVT prophylaxis: SCDs, aspirin daily -Discharge planning: Plan on discharge home possibly today versus tomorrow. Will await medicine input. Admission and Anticipated Discharge Date Admission Date: February 26, 2022 Subjective Patient is postop day 1 left reverse total shoulder. He is doing well this morning without well-controlled. Denies chest pain, headaches, shortness of breath, dizziness, nausea/vomiting/diarrhea. Review of Systems Review of Systems: All systems reviewed & are unremarkable except as noted in Subjective Physical Exam Physical Exam: Left shoulder: Sling is in place. Dressing is clean, dry, intact. Hemovac on suction. Fingers are mobile with good safety pin assembling machine operator strength. Distally neurovascular status and sensation intact Constitutional: WD/WN, vitals as above Results & Data ([facility]) Vital Signs (Past 12 Hours) Vital Signs Temp Pulse Resp BP Pulse Ox 02/27/22 07:39 36.5 C 67 16 151/73 H 94 02/27/22 02:09 36.6 C 84 16 153/79 H 92 02/26/22 22:27 36.6 C 68 16 117/68 94
[2022-02-27] MEDS ORDERED: METOPROLOL SUCC 25MG EXT REL TAB PO SCH (09:00)
[2022-02-27] MEDS ORDERED: ASPIRIN 81 MG ECTAB PO SCH (09:00)
[2022-02-27] MEDS ORDERED: ISOSORBIDE MONO EXTENDED REL 30 MG TABCR PO SCH (09:00)
[2022-02-27] MEDS ORDERED: FINASTERIDE 5 MG TAB PO SCH (09:00)
[2022-02-27] MEDS ORDERED: [UNRECOGNIZED DRUG - OTHER] PO SCH (09:00)
[2022-02-27] MEDS ORDERED: MULTIVITAMIN TAB PO SCH (09:00)
[2022-02-27] MEDS: DOCUSATE SODIUM 100 MG CAP PO SCH (09:19)
[2022-02-27] MEDS ORDERED: lisinopril 10 MG TAB PO SCH (12:00)
--- NOTE | 2022-02-27 14:07 | Hospitalist Progress Note ---
Date of Service February 27, 2022 Assessment & Plan (1) S/p reverse total shoulder arthroplasty: Plan: 78-year-old male with PMH of CAD (s/p CABG in , RENETTA x 1 2016), CKD 3, hypertension, hyperlipidemia, BPH, mild aortic stenosis, prediabetes and other medical problems listed below who is s/p left reverse TSA by Dr. Cisse. POD#1 s/p left reverse TSA by Dr. Cisse. Per ortho for pain control, wound care, anticoagulation and activities pre-op hgb 13.1. Hb today is 13.1 Leukocytosis likely reactive Continue incentive spirometry, PT/OT when appropriate (2) CAD (coronary artery disease): Plan: H/o CABG in 1998, RENETTA x 1 in 2016. No recent chest pain Continue aspirin, Imdur, Toprol Diastolic dysfunction Takes 20mg Lasix PRN for edema (3) Hypertension: Plan: Normotensive. Continue Toprol, lisinopril (4) BPH (benign prostatic hyperplasia): Plan: Continue finasteride, bladder scan PRN (5) CKD (chronic kidney disease), stage III: Plan: Baseline Cr ~1.5 Cr was 1.27 on 01/27/22 Cr was 1.9 pre-operatively on 02/10/22 Per [facility] review Cr was 1.69 today Recheck is 1.7 PCP can repeat BMP within the week Patient needs outpatient follow up with Nephrology since he has CKD 3. Educated patient on this (6) Prediabetes: Plan: Most recent a1c 6.2. Monitor glucose daily, carb consistent diet (7) Hyperlipidemia: Plan: Continue statin (8) Sleep disturbance: Plan: Continue Trazodone HS (9) Mild aortic stenosis: Plan: Noted on 2019 echo. Stable per outpatient records PCP: Andre Dispo: Per primary service Admission and Anticipated Discharge Date Admission Date: February 26, 2022 Subjective Patient seen and examined Reports surgical site pain is well controlled Denied any headache, dizziness, nausea, vomiting, abd pain Denied cough, chest pain, shortness of breath Physical Exam Constitutional: + well hydrated and + obese; no acute distress Eyes: PERRL, conjunctivae normal, anicteric sclerae ENMT: external ear and nose normal, oropharynx normal Respiratory: normal respiratory effort, lungs clear to auscultation Cardiovascular: Rate/Rhythm: regular rate and regular rhythm S1 S2 Gastrointestinal (Abdomen): normal bowel sounds, soft, nontender, no hepatosplenomegaly Musculoskeletal: Left UE in sling Left pedal edema (reported this is chronic after vein harvesting for bypass) Neurologic: PERRL, EOMI, accommodation nl, no face palsy, no dysarthria Psychiatric: A+Ox3, euthymic affect Results & Data Results & Data ([facility]) Vital Signs (Past 12 Hours) Vital Signs Temp Pulse Resp BP Pulse Ox 02/27/22 12:21 36.6 C 72 17 91/51 L 95 02/27/22 07:39 36.5 C 67 16 151/73 H 94 02/27/22 02:09 36.6 C 84 16 153/79 H 92 Laboratory Results Abnormal lab results 02/27/22 02/27/22 Range/Units 05:36 05:36 WBC 16.18 H (4.8-10.8) K/uL RBC 4.16 L (4.7-6.1) M/uL Hgb 13.1 L (14.0-18.0) g/dL Hct 38.6 L (42-52) % Neut # (Auto) 14.55 H (1.4-6.5) K/uL Lymph # (Auto) 0.81 L (1.2-3.4) K/uL Sequoyah # (Auto) 0.77 H (0.11-0.59) K/uL Immature Gran # (Auto) 0.05 H (0.00-0.02) K/uL Sodium 134 L (136-145) mmol/L BUN 32 H (6-23) mg/dl Creatinine 1.69 H (0.6-1.4) mg/dl Glucose 168 H (70-99(Fasting)) mg/dl
[2022-02-27 15:21] LABS: BUN Creatinine Ratio 20.6 (10-20); Calcium 8.4 mg/dl (8.5-10.1); Creatinine Clr Calc Pharmacy 39.3 ml/min; Est GFR (African American) 42.3 ml/min; Est GFR (Non-African American) 36.5 ml/min; Potassium 4.3 mmol/L (3.5-5.1)
--- NOTE | 2022-03-02 10:09 | Discharge Summary ---
Date of Service March 02, 2022 Admission HPI Per Admitting Provider 81-year-old male with past medical history significant for hypertension, high cholesterol, CAD status post bypass and stents, COPD and interstitial lung disease who presents with ongoing left shoulder pain. Patient has failed conservative measures. Pain is interfering with his daily activities. He would like to proceed with surgical intervention. Patient denies headaches, sweats, fevers, chills, double vision, blurred vision, cough, sore throat, dysphagia, chest pain, sob, wheezing, n/v/d/c, numbness, tingling, fatigue, urinary symptoms, mood disorders. ROS positive for left shoulder pain and stiffness. Admission Exam Per Admitting Provider Constitutional: well developed and well nourished; no acute distress Eyes: PERRL, conjunctivae normal, anicteric sclerae ENMT: external ear and nose normal, oropharynx normal Neck: trachea midline, no thyromegaly Respiratory: normal respiratory effort, lungs clear to auscultation Cardiovascular: RRR, no murmur, no edema Musculoskeletal: Left shoulder: Tenderness anterolateral acromion. Positive impingement signs. Active painful range of motion. Range of motion: Active abduction to 60 degrees, forward flexion is 70 degrees, external rotation to 70 degrees. Shoulder external rotation strength is 3+/5, internal rotation is 4+/5, abduction is 2+/5. Skin: no rashes, warm and dry Neurologic: patellar DTR's 2+ bilat, sensation intact Psychiatric: A+Ox3, euthymic affect Principal Diagnosis Left shoulder rotator cuff arthropathy Discharge Exam Left shoulder: Sling is in place. Dressing is clean, dry, intact. Hemovac on suction. Fingers are mobile with good carton forming machine tender strength. Distally neurovascular status and sensation intact Constitutional WD/WN, vitals as above Discharge Data Allergies Allergy/AdvReac Type Severity Reaction Status Date / Time Penicillins Allergy Severe RASH; SOB Verified 02/26/22 09:20 latex Allergy Intermediate localized Verified 02/26/22 09:20 rash Consultations 02/26/22 05:00 Consult Hospitalist Routine Procedures Performed Operation Date: 02/26/22 11:20 Actual Procedures p Left Reverse Total Shoulder Arthroplasty(Left) - Carmelo Cisse MD Ordered Studies 02/26/22 05:00 US - OR guided needle placemen Routine Hospital Course (1) S/p reverse total shoulder arthroplasty: Patient presented for same day admission following left reverse TSA on 02/26/22. He tolerated procedure well. The Patient had an uneventful hospital course. Post-operatively, his activity was progressed and well tolerated. They participated in PT. Labs remained stable- lowest hemoglobin recorded: 13.1. His creatinine was within his baseline. Dr. Anita Arzola of medical service was consulted for medical management during admission. Pain controlled on oral medications. Please refer to daily progress notes and PT notes for complete details. After exam on 02/27/22, patient was felt to be stable for discharge home. Patient will f/u in the office in about 2 weeks for further evaluation including x-rays and incision check, sooner if having any issues or concerns. Postop day 1 left reverse total shoulder arthroplasty -PT/OT: No formal therapy at this time -Pain management as written home -AM labs: Mild leukocytosis likely due to surgical stress versus perioperative steroids. Hemoglobin 13.1 stable. Does have some mild hyponatremia with sodium of 134. Creatinine did increase to 1.69 from 1.2 preop. He does have history of CKD -DVT prophylaxis: SCDs, aspirin daily -Discharge planning: Plan on discharge home possibly today versus tomorrow. Will await medicine input. Lab Results 02/26/22 02/27/22 02/27/22 Range/Units 08:50 05:36 05:36 WBC 16.18 H (4.8-10.8) K/uL RBC 4.16 L (4.7-6.1) M/uL Hgb 13.1 L (14.0-18.0) g/dL Hct 38.6 L (42-52) % MCV 92.8 (80-100) fL MCH 31.5 (25-34) pg MCHC 33.9 (32-36) g/dL RDW Std Deviation 45.5 (36.4-46.3) fL RDW Coeff of Tracie 13.4 (11.5-14.5) % Plt Count 219 (130-400) K/uL MPV 9.3 (7.4-10.4) fL Immature Gran % (Auto) 0.3 % Neut % (Auto) 89.9 % Lymph % (Auto) 5.0 % Cass % (Auto) 4.8 % Eos % (Auto) 0.0 % Baso % (Auto) 0.0 % Neut # (Auto) 14.55 H (1.4-6.5) K/uL Lymph # (Auto) 0.81 L (1.2-3.4) K/uL Cass # (Auto) 0.77 H (0.11-0.59) K/uL Eos # (Auto) 0.00 (0-0.5) K/uL Baso # (Auto) 0.00 (0-0.2) K/uL Immature Gran # (Auto) 0.05 H (0.00-0.02) K/uL Sodium 134 L (136-145) mmol/L Potassium 4.5 (3.5-5.1) mmol/L Chloride 104 (98-107) mmol/L Carbon Dioxide 22 (21-32) mmol/L Anion Gap 8 (3-11) BUN 32 H (6-23) mg/dl Creatinine 1.69 H (0.6-1.4) mg/dl Est Cr Clr Drug Dosing 39.5 ml/min Est GFR ( Amer) 42.6 ml/min Est GFR (Non-Af Amer) 36.7 ml/min BUN/Creatinine Ratio 18.9 (10-20) Glucose 168 H (70-99(Fasting)) mg/dl Calcium 8.8 (8.5-10.1) mg/dl SARS-CoV-2, RNA, NAAT NEGATIVE (NEGATIVE) 02/27/22 Range/Units 14:06 WBC (4.8-10.8) K/uL RBC (4.7-6.1) M/uL Hgb (14.0-18.0) g/dL Hct (42-52) % MCV (80-100) fL MCH (25-34) pg MCHC (32-36) g/dL RDW Std Deviation (36.4-46.3) fL RDW Coeff of Tracie (11.5-14.5) % Plt Count (130-400) K/uL MPV (7.4-10.4) fL Immature Gran % (Auto) % Neut % (Auto) % Lymph % (Auto) % Cass % (Auto) % Eos % (Auto) % Baso % (Auto) % Neut # (Auto) (1.4-6.5) K/uL Lymph # (Auto) (1.2-3.4) K/uL Cass # (Auto) (0.11-0.59) K/uL Eos # (Auto) (0-0.5) K/uL Baso # (Auto) (0-0.2) K/uL Immature Gran # (Auto) (0.00-0.02) K/uL Sodium 136 (136-145) mmol/L Potassium 4.3 (3.5-5.1) mmol/L Chloride 106 (98-107) mmol/L Carbon Dioxide 21 (21-32) mmol/L Anion Gap 9 (3-11) BUN 35 H (6-23) mg/dl Creatinine 1.70 H (0.6-1.4) mg/dl Est Cr Clr Drug Dosing 39.3 ml/min Est GFR ( Amer) 42.3 ml/min Est GFR (Non-Af Amer) 36.5 ml/min BUN/Creatinine Ratio 20.6 H (10-20) Glucose 224 H (70-99(Fasting)) mg/dl Calcium 8.4 L (8.5-10.1) mg/dl SARS-CoV-2, RNA, NAAT (NEGATIVE) Total Time Total Time Spent Total Time Spent (In Minutes): 20 Discharge Plan Discharge Items Patient Disposition: Home - Self-Care Reason For Visit: Left Shoulder Rotator Cuff Arthropathy Discharge Diagnosis: Left shoulder rotator cuff arthropathy Activity: Per Instructions section Non-emergency contact: Surgeon Call non-emergency contact if: you have any medication questions, your pain is not controlled, your pain is concerning for you, you have a fever, your temperature is above 101, your wound has increased redness, your wound has increased drainage and your wound pain has increased Follow-up/Referrals: Kain Powell MD [Primary Care Provider] - Diet: Regular Addtl Attending Provider Instructions: ACTIVITY RECOMMENDATIONS: SELF CARE INSTRUCTIONS AFTER TOTAL SHOULDER ARTHROPLASTY REVERSE A. You may do daily exercises as taught in physical therapy while in hospital. No lifting with the operative arm. B. You are to wear your sling/immobilizer at all times EXCEPT when performing your daily exercises and for hygiene purposes. C. You may perform dry, daily dressing changes. Please keep your incision covered. You may shower 48 hours after surgery. Do not apply soap or any ointment/lotions directly over incision. Do not soak incision in bath tub/swimming pool. D. You may use ice as needed to operative shoulder. SPECIAL CARE INSTRUCTIONS: VERY IMPORTANT TO READ AND REVIEW A. There are a few signs you need to watch for after you are home. Call [facility] at [phone] if you experience any of the followin. Increased severe shoulder pain. Some pain is expected especially when you exercise. 2. Increased swelling in you shoulder or arm; pain or swelling in either upper extremity. 3. Any fluid drainage from the incision. 4. Shortness of breath or chest pain. B. Please call [facility] at [phone] if you have any questions or concerns about your operation or recovery. C. Call your physician if: 1. Temperature is greater than 101 degrees (F). 2. Pain is not relieved by prescribed pain medications. 3. Increase drainage or redness from incision. 4. Unanswered questions or concerns. FOLLOW UP VISIT: Please call [facility] at [phone] to schedule a follow up appointment with Dr. Cisse or his PA in 12-14 days from your surgery date. Recommend following up with your PCP within 1 week to recheck your kidney function to ensure it is stable/improving. Stand-Alone Forms: My [facility] [employer], Opioid Pain Management, Smoking Cessation Medications and DC Order Prescriptions: New acetaminophen [Tylenol Extra Strength] 500 mg Tablet 1,000 mg PO Q8 14 Days Qty: 84 RF: 0 polyethylene glycol 3350 [Miralax] 17 gram powder in packet 17 g PO DAILY PRN (Reason: constipation) Qty: 5 RF: 0 oxycodone 5 mg Tablet 5 mg PO Q4H MDD 6 PRN (Reason: pain) Qty: 30 RF: 0 Continued multivitamin Tablet 1 tab PO QAM RF: 0 isosorbide mononitrate 30 mg Tablet Extended Release 24 Hr 30 mg PO QAM RF: 0 aspirin [Ecotrin Low Strength] 81 mg Tablet,Delayed Release (Dr/Ec) 81 mg PO QAM RF: 0 trazodone 100 mg Tablet 100 mg PO HS RF: 0 simvastatin 20 mg Tablet 20 mg PO HS RF: 0 lisinopril 10 mg Tablet 10 mg PO 1200 RF: 0 metoprolol succinate 25 mg Tablet Extended Release 24 Hr 25 mg PO QAM RF: 0 finasteride 5 mg Tablet 5 mg PO QAM RF: 0 vitamin E mixed-tocotrienol 120-17 unit-mg Capsule 1 cap PO QAM RF: 0 furosemide 20 mg tablet 20 mg PO DAILY PRN (Reason: Edema) RF: 0 Discontinued omega 2-afq-wyj-fish oil [Fish Oil] 1,200 (144-216) mg Capsule 1,200 cap PO QAM RF: 0 Discharge Orders: Discharge Order (Routine); Ordered 02/27/22 Ordered By: Fritz Matthews Admission Data Admit Date/Time: 02/26/22 14:30 Attending Provider: Carmelo Cisse Admit Provider: Carmelo Cisse Primary Care Provider: Kain Powell Other Providers: Brooke Isabel I. Other Interventions: Discharge Summary Assessment (RN) Last Done: 02/27/22 16:27
== END 2022-02-27 18:50 | disposition home or self-care (01) ==
LOC: ASU 08:31 → 3E 14:30 → INTOOBSV 14:30